=== PATIENT | male | born 1960 | race African-American/Black ===

== ENCOUNTER 2022-08-13 14:12 | Inpatient (IN) | payer OTHER ==
[2022-08-13] MEDS ORDERED: ACETAMINOPHEN 1000 MG/100 ML BAG IVPB ONE (14:34)
[2022-08-13] MEDS ORDERED: ACETAMINOPHEN INJECTION 100 ML IVPB ONE (14:56)
[2022-08-13 15:58] LABS: VENOUS BASE EXCESS 1.9 mmol/L (-2-2); VENOUS O2 SATURATION 50.1 % (70-80); VENOUS PCO2 45.9 mmHg (38-52); VENOUS PH 7.393 (7.310-7.410)
[2022-08-13 16:05] LABS: BASO % 0.1 % (0-2.0); EOS % 0.9 % (0-4.5); HEMATOCRIT 40.5 % (35.4-49); HEMOGLOBIN 12.4 GM/dL (11.7-16.9); LYMPH % 2.5 % (8-40); MCH 29.1 pg (25.7-33.7); MCHC 30.7 g/dl (32.0-35.9); MEAN CELL VOLUME 94.7 fl (80-96); MEAN PLT VOLUME 10.3 fl (7.5-11.1); MONO % 2.2 % (3.8-10.2); NEUT % 94.3 % (42.8-82.8); PLATELET COUNT 154 10^3/uL (134-434); RBC 4.28 M/mm3 (4.00-5.60); RDW 20.9 % (11.9-15.9); WHITE BLOOD COUNT 16.7 K/mm3 (4.0-10.0)
[2022-08-13 16:10] LABS: INR 2.44 (0.83-1.09); PROTHROMBIN TIME (PATIENT) 28.1 SEC (9.7-13.0)
[2022-08-13 16:13] LABS: ACTIVATED PTT 37.6 SECONDS (25.2-36.5)
[2022-08-13 16:23] LABS: CHLORIDE 96 mmol/L (98-107); SODIUM 138 mmol/L (136-145)
[2022-08-13 16:27] LABS: CALCIUM 10.7 mg/dL (8.5-10.1)
[2022-08-13 16:28] LABS: ALBUMIN 2.6 g/dl (3.4-5.0); BLOOD UREA NITROGEN 61.4 mg/dL (7-18); CO2 31 mmol/L (21-32); GLUCOSE,RANDOM 207 mg/dL (74-106); MAGNESIUM 2.4 mg/dL (1.8-2.4)
[2022-08-13 16:31] LABS: PHOSPHOROUS 6.8 mg/dL (2.5-4.9); SGOT/AST 21 U/L (15-37); SGPT/ALT 25 U/L (13-61)
[2022-08-13 16:32] LABS: BILIRUBIN,TOTAL 1.4 mg/dL (0.2-1); TOT PROT 7.8 g/dl (6.4-8.2)
[2022-08-13 16:34] LABS: ALK PHOS 209 U/L (45-117)
[2022-08-13 16:51] LABS: ANION GAP 10 MMOL/L (8-16); CREATININE 11.5 mg/dL (0.55-1.3); POTASSIUM 6.6 mmol/L (3.5-5.1)
[2022-08-13] MEDS ORDERED: INSULIN REGULAR HUMAN 100 UNITS/ML *VIAL IVPUSH ONE (17:08)
[2022-08-13] MEDS ORDERED: CALCIUM GLUCONATE 10% - 1,000 MG/10 ML VIAL IVPUSH ONE (17:08)
[2022-08-13] MEDS ORDERED: DEXTROSE 50%-WATER - 25 GM/50 ML VIAL IVPUSH ONE (17:09)
[2022-08-13] MEDS ORDERED: ALBUTEROL SO4 0.083% IH SOL 2.5 MG/3 ML VIAL.NEB. NEB SCH (17:15)
[2022-08-13 17:27] LABS: ANISOCYTOSIS 1+; MACROCYTOSIS 0; PLATELET ESTIMATE NORMAL
[2022-08-13] MEDS ORDERED: DEXTROSE 50%-WATER 25 GM/50 ML DISP.SYRIN ONE (17:36)
[2022-08-13] MEDS ORDERED: CALCIUM GLUCONATE 10% - 1,000 MG/10 ML VIAL ONE (17:36)
[2022-08-13] MEDS ORDERED: ALBUTEROL SO4 0.5 % INH SOLN 2.5 MG/0.5 ML VIAL.NEB. NEB ONE (17:36)
[2022-08-13] MEDS ORDERED: SODIUM CHLORIDE 250 ML IV PRN ×2 (18:16→18:17)
[2022-08-13] MEDS: ALBUMIN HUMAN 25% 12.5 GM/50 ML VIAL IV SCH ×2 (21:13→21:14)
[2022-08-13] MEDS ORDERED: HYDROmorphone HCl 2 MG/ML VIAL IVPUSH STA (21:15)
[2022-08-13] MEDS: MUPIROCIN 2% TOPICAL OINTMENT FOR DECOLONIZATION NS SCH (21:31)
[2022-08-13] MEDS: HEPARIN NA (PORCINE) 5,000 UNITS/ML 1ML VIAL SQ SCH (21:32)
[2022-08-13] MEDS: ATORVASTATIN CA 80 MG TABLET (FP) PO SCH (21:32)
[2022-08-13] MEDS: CHLORHEXIDINE GLUCONATE 4% CLEANSER FOR DECOLONIZATION TP SCH (21:32)
[2022-08-13] MEDS: PIPERACILLIN/TAZOB 2.25 GM 2.25 GM in DEXTROSE 5%-WATER - 50 ML IVPB SCH (21:49)
[2022-08-13] MEDS: INSULIN (LEVEMIR) 100 UNITS/ML UNITS SQ SCH (22:13)
[2022-08-13] MEDS: INSULIN SLIDING SCALE (NOVOLOG) 1 VIAL SQ SCH (22:13)
[2022-08-14] MEDS: PIPERACILLIN/TAZOB 2.25 GM 2.25 GM in DEXTROSE 5%-WATER - 50 ML IVPB SCH ×4 (01:46→18:26)
[2022-08-14] MEDS ORDERED: INSULIN (NOVOLOG) ASPART 100 UNITS/ML 10ML VIAL ONE ×3 (06:24→17:44)
[2022-08-14] MEDS: HEPARIN NA (PORCINE) 5,000 UNITS/ML 1ML VIAL SQ SCH ×3 (06:33→21:24)
[2022-08-14] MEDS: INSULIN SLIDING SCALE (NOVOLOG) 1 VIAL SQ SCH ×4 (06:33→21:25)
[2022-08-14 06:37] LABS: HEMATOCRIT 38.3 % (35.4-49); MCH 29.3 pg (25.7-33.7); MCHC 31.4 g/dl (32.0-35.9); MEAN CELL VOLUME 93.5 fl (80-96); MEAN PLT VOLUME 9.9 fl (7.5-11.1); PLATELET COUNT 157 10^3/uL (134-434); RBC 4.09 M/mm3 (4.00-5.60); RDW 21.1 % (11.9-15.9); WHITE BLOOD COUNT 15.2 K/mm3 (4.0-10.0)
[2022-08-14 06:41] LABS: POTASSIUM 5.2 mmol/L (3.5-5.1)
[2022-08-14 06:45] LABS: ALBUMIN 2.1 g/dl (3.4-5.0); CALCIUM 9.5 mg/dL (8.5-10.1); MAGNESIUM 1.9 mg/dL (1.8-2.4)
[2022-08-14 06:48] LABS: CREATININE 7.3 mg/dL (0.55-1.3); PHOSPHOROUS 5.5 mg/dL (2.5-4.9)
[2022-08-14 06:49] LABS: TOT PROT 6.6 g/dl (6.4-8.2)
[2022-08-14 06:50] LABS: BILIRUBIN,TOTAL 1.4 mg/dL (0.2-1)
[2022-08-14 09:28] LABS: ANISOCYTOSIS 1+; MACROCYTOSIS 0
[2022-08-14] MEDS ORDERED: ENOXAPARIN NA (PORCINE) 40 MG/0.4 ML DISP.SYRIN SQ SCH (10:00)
[2022-08-14] MEDS: MUPIROCIN 2% TOPICAL OINTMENT FOR DECOLONIZATION NS SCH ×2 (10:18→21:25)
[2022-08-14] MEDS: ASPIRIN 81 MG CHEWABLE TABLETS PO SCH (10:18)
[2022-08-14] MEDS ORDERED: SODIUM CHLORIDE 250 ML IV PRN (10:34)
[2022-08-14] MEDS: INSULIN (LEVEMIR) 100 UNITS/ML UNITS SQ SCH ×2 (11:03→21:24)
[2022-08-14] MEDS ORDERED: VANCOMYCIN/WATER FOR INJ (PEG) 1,000 MG/200 ML BAG IVPB ONE (11:45)
[2022-08-14] MEDS ORDERED: HYDROmorphone HCl 2 MG/ML VIAL IVPUSH STA (20:38)
[2022-08-14] MEDS: CHLORHEXIDINE GLUCONATE 4% CLEANSER FOR DECOLONIZATION TP SCH (21:24)
[2022-08-14] MEDS: ATORVASTATIN CA 80 MG TABLET (FP) PO SCH (21:25)
[2022-08-14] MEDS ORDERED: INSULIN (LEVEMIR) 100 UNITS/ML UNITS SQ ONE (21:39)
[2022-08-15] MEDS: PIPERACILLIN/TAZOB 2.25 GM 2.25 GM in DEXTROSE 5%-WATER - 50 ML IVPB SCH ×3 (01:23→17:58)
[2022-08-15] MEDS: HEPARIN NA (PORCINE) 5,000 UNITS/ML 1ML VIAL SQ SCH ×3 (06:09→21:20)
[2022-08-15] MEDS: INSULIN SLIDING SCALE (NOVOLOG) 1 VIAL SQ SCH ×4 (06:09→21:21)
[2022-08-15 06:58] LABS: HEMATOCRIT 38.3 % (35.4-49); HEMOGLOBIN 12.1 GM/dL (11.7-16.9); MCH 29.4 pg (25.7-33.7); MCHC 31.5 g/dl (32.0-35.9); MEAN CELL VOLUME 93.4 fl (80-96); MEAN PLT VOLUME 9.5 fl (7.5-11.1); PLATELET COUNT 166 10^3/uL (134-434); RBC 4.11 M/mm3 (4.00-5.60); RDW 20.4 % (11.9-15.9); WHITE BLOOD COUNT 13.3 K/mm3 (4.0-10.0)
[2022-08-15 07:50] LABS: POTASSIUM 4.4 mmol/L (3.5-5.1)
[2022-08-15 08:00] LABS: CALCIUM 9.9 mg/dL (8.5-10.1); MAGNESIUM 2.1 mg/dL (1.8-2.4)
[2022-08-15 08:02] LABS: BLOOD UREA NITROGEN 31.1 mg/dL (7-18)
[2022-08-15 08:05] LABS: PHOSPHOROUS 4.1 mg/dL (2.5-4.9)
[2022-08-15 08:07] LABS: CREATININE 5.3 mg/dL (0.55-1.3)
[2022-08-15] MEDS ORDERED: NEBIVOLOL 10 MG TABLET (FP) PO SCH (10:00)
[2022-08-15] MEDS: RANOLAZINE E.R. 500 MG TABLET (FP) PO SCH ×2 (10:19→21:21)
[2022-08-15] MEDS: PANTOPRAZOLE 40 MG TABLET PO SCH (10:19)
[2022-08-15] MEDS: PRASUGREL HCL 5 MG TAB PO SCH (10:19)
[2022-08-15] MEDS: ASPIRIN 81 MG CHEWABLE TABLETS PO SCH (10:20)
[2022-08-15] MEDS: MUPIROCIN 2% TOPICAL OINTMENT FOR DECOLONIZATION NS SCH ×2 (10:20→21:22)
[2022-08-15] MEDS: INSULIN (LEVEMIR) 100 UNITS/ML UNITS SQ SCH ×2 (10:20→21:21)
[2022-08-15] MEDS ORDERED: INSULIN (NOVOLOG) ASPART 100 UNITS/ML 10ML VIAL ONE ×2 (11:16→22:24)
[2022-08-15] MEDS: ATORVASTATIN CA 80 MG TABLET (FP) PO SCH (21:20)
[2022-08-15] MEDS: CHLORHEXIDINE GLUCONATE 4% CLEANSER FOR DECOLONIZATION TP SCH (21:21)
[2022-08-16] MEDS: PIPERACILLIN/TAZOB 2.25 GM 2.25 GM in DEXTROSE 5%-WATER - 50 ML IVPB SCH ×3 (01:24→17:41)
[2022-08-16] MEDS: HEPARIN NA (PORCINE) 5,000 UNITS/ML 1ML VIAL SQ SCH ×3 (06:20→22:22)
[2022-08-16] MEDS: INSULIN SLIDING SCALE (NOVOLOG) 1 VIAL SQ SCH ×4 (06:58→22:45)
[2022-08-16 07:55] LABS: CHLORIDE 98 mmol/L (98-107); SODIUM 135 mmol/L (136-145)
[2022-08-16 07:59] LABS: CALCIUM 9.6 mg/dL (8.5-10.1); CO2 29 mmol/L (21-32); MAGNESIUM 2.6 mg/dL (1.8-2.4)
[2022-08-16] MEDS ORDERED: DEXTROSE 50%-WATER 25 GM/50 ML DISP.SYRIN ONE (08:01)
[2022-08-16] MEDS ORDERED: DEXTROSE 50%-WATER 25 GM/50 ML DISP.SYRIN IVPUSH ONE ×2 (08:10→08:27)
[2022-08-16 08:12] LABS: HEMATOCRIT 41.5 % (35.4-49); HEMOGLOBIN 12.8 GM/dL (11.7-16.9); MCH 28.7 pg (25.7-33.7); MCHC 30.7 g/dl (32.0-35.9); MEAN CELL VOLUME 93.4 fl (80-96); MEAN PLT VOLUME 9.7 fl (7.5-11.1); PLATELET COUNT 139 10^3/uL (134-434); RBC 4.45 M/mm3 (4.00-5.60); RDW 20.6 % (11.9-15.9); WHITE BLOOD COUNT 11.4 K/mm3 (4.0-10.0)
[2022-08-16 08:17] LABS: ANION GAP 9 MMOL/L (8-16); BLOOD UREA NITROGEN 56.4 mg/dL (7-18); GLUCOSE,RANDOM 31 mg/dL (74-106); POTASSIUM 6.8 mmol/L (3.5-5.1)
[2022-08-16] MEDS ORDERED: ACETAMINOPHEN 500 MG TABLET (FP) PO ONE (08:27)
[2022-08-16 09:26] LABS: GAMMA GLUTAMYL TRANSPEPTIDASE 231 U/L (5-85)
[2022-08-16 09:28] LABS: BILIRUBIN,DIRECT 0.3 mg/dL (0.0-0.2)
[2022-08-16] MEDS ORDERED: VANCOMYCIN/WATER FOR INJ (PEG) 1,000 MG/200 ML BAG IVPB ONE (09:58)
[2022-08-16] MEDS: RANOLAZINE E.R. 500 MG TABLET (FP) PO SCH ×2 (10:12→22:23)
[2022-08-16] MEDS: PANTOPRAZOLE 40 MG TABLET PO SCH (10:15)
[2022-08-16] MEDS: ASPIRIN 81 MG CHEWABLE TABLETS PO SCH (10:16)
[2022-08-16] MEDS: PRASUGREL HCL 5 MG TAB PO SCH (10:17)
[2022-08-16] MEDS: MUPIROCIN 2% TOPICAL OINTMENT FOR DECOLONIZATION NS SCH ×2 (10:17→22:46)
[2022-08-16] MEDS: LIDOCAINE 5% TOPICAL PATCH TP SCH (10:25)
[2022-08-16] MEDS ORDERED: SODIUM ZIRCONIUM CYCLOSILICATE (LOKELMA) 5 GM PACKET PO ONE (11:20)
[2022-08-16 12:26] LABS: INR 1.48 (0.83-1.09); PROTHROMBIN TIME (PATIENT) 17.1 SEC (9.7-13.0)
[2022-08-16 12:29] LABS: ACTIVATED PTT 35.3 SECONDS (25.2-36.5)
[2022-08-16 12:40] LABS: POTASSIUM 4.7 mmol/L (3.5-5.1)
[2022-08-16 12:41] LABS: CALCIUM 9.9 mg/dL (8.5-10.1)
[2022-08-16 12:42] LABS: BLOOD UREA NITROGEN 59.5 mg/dL (7-18)
[2022-08-16 12:45] LABS: CREATININE 7.1 mg/dL (0.55-1.3)
[2022-08-16] MEDS ORDERED: SODIUM CHLORIDE 250 ML IV PRN (16:19)
[2022-08-16] MEDS ORDERED: INSULIN (NOVOLOG) ASPART 100 UNITS/ML 10ML VIAL ONE ×2 (17:38→21:14)
[2022-08-16] MEDS: LIDOCAINE PATCH REMOVAL MC SCH (22:23)
[2022-08-16] MEDS: CHLORHEXIDINE GLUCONATE 4% CLEANSER FOR DECOLONIZATION TP SCH (22:23)
[2022-08-16] MEDS: ATORVASTATIN CA 80 MG TABLET (FP) PO SCH (22:23)
[2022-08-17] MEDS: PIPERACILLIN/TAZOB 2.25 GM 2.25 GM in DEXTROSE 5%-WATER - 50 ML IVPB SCH ×3 (02:49→18:09)
[2022-08-17] MEDS: HEPARIN NA (PORCINE) 5,000 UNITS/ML 1ML VIAL SQ SCH ×3 (06:10→21:07)
[2022-08-17] MEDS: INSULIN SLIDING SCALE (NOVOLOG) 1 VIAL SQ SCH ×4 (06:11→21:08)
[2022-08-17 08:08] LABS: CARCINOEMBRYONIC ANTIGEN 5.1 ng/mL (0.0-4.7)
[2022-08-17] MEDS: PANTOPRAZOLE 40 MG TABLET PO SCH (09:19)
[2022-08-17] MEDS: ASPIRIN 81 MG CHEWABLE TABLETS PO SCH (09:19)
[2022-08-17] MEDS: LIDOCAINE 5% TOPICAL PATCH TP SCH (09:19)
[2022-08-17] MEDS: RANOLAZINE E.R. 500 MG TABLET (FP) PO SCH ×2 (09:19→21:07)
[2022-08-17] MEDS: PRASUGREL HCL 5 MG TAB PO SCH (09:20)
[2022-08-17] MEDS: MUPIROCIN 2% TOPICAL OINTMENT FOR DECOLONIZATION NS SCH ×2 (11:00→21:17)
[2022-08-17] MEDS ORDERED: INSULIN (NOVOLOG) ASPART 100 UNITS/ML 10ML VIAL ONE (12:43)
[2022-08-17 13:45] LABS: HEMATOCRIT 35.4 % (35.4-49); HEMOGLOBIN 11.5 GM/dL (11.7-16.9); MCH 29.2 pg (25.7-33.7); MCHC 32.4 g/dl (32.0-35.9); MEAN CELL VOLUME 90.1 fl (80-96); PLATELET COUNT 124 10^3/uL (134-434); RBC 3.92 M/mm3 (4.00-5.60); RDW 20.7 % (11.9-15.9); WHITE BLOOD COUNT 8.7 K/mm3 (4.0-10.0)
[2022-08-17 13:47] LABS: INR 1.46 (0.83-1.09); PROTHROMBIN TIME (PATIENT) 16.9 SEC (9.7-13.0)
[2022-08-17 14:22] LABS: CHLORIDE 94 mmol/L (98-107); POTASSIUM 4.7 mmol/L (3.5-5.1); SODIUM 133 mmol/L (136-145)
[2022-08-17 14:25] LABS: CALCIUM 9.7 mg/dL (8.5-10.1)
[2022-08-17 14:26] LABS: ANION GAP 14 MMOL/L (8-16); BLOOD UREA NITROGEN 77.1 mg/dL (7-18); CO2 26 mmol/L (21-32); GLUCOSE,RANDOM 246 mg/dL (74-106)
[2022-08-17 14:40] LABS: MAGNESIUM 2.7 mg/dL (1.8-2.4)
[2022-08-17 14:42] LABS: ALBUMIN 2.3 g/dl (3.4-5.0)
[2022-08-17 14:45] LABS: PHOSPHOROUS 4.7 mg/dL (2.5-4.9); SGOT/AST 66 U/L (15-37); SGPT/ALT 62 U/L (13-61)
[2022-08-17 14:46] LABS: BILIRUBIN,TOTAL 1.1 mg/dL (0.2-1); TOT PROT 7.1 g/dl (6.4-8.2)
[2022-08-17 14:48] LABS: ALK PHOS 307 U/L (45-117); CREATININE 8.5 mg/dL (0.55-1.3)
[2022-08-17 14:58] LABS: ANISOCYTOSIS 1+; MACROCYTOSIS 1+
[2022-08-17] MEDS: LIDOCAINE PATCH REMOVAL MC SCH (21:07)
[2022-08-17] MEDS: ATORVASTATIN CA 80 MG TABLET (FP) PO SCH (21:07)
[2022-08-17] MEDS: CHLORHEXIDINE GLUCONATE 4% CLEANSER FOR DECOLONIZATION TP SCH (21:07)
[2022-08-18] MEDS: PIPERACILLIN/TAZOB 2.25 GM 2.25 GM in DEXTROSE 5%-WATER - 50 ML IVPB SCH ×3 (02:21→17:13)
[2022-08-18] MEDS: HEPARIN NA (PORCINE) 5,000 UNITS/ML 1ML VIAL SQ SCH ×3 (06:34→21:28)
[2022-08-18] MEDS: INSULIN SLIDING SCALE (NOVOLOG) 1 VIAL SQ SCH ×4 (06:56→21:38)
[2022-08-18] MEDS ORDERED: INSULIN (NOVOLOG) ASPART 100 UNITS/ML 10ML VIAL ONE ×2 (07:24→17:07)
[2022-08-18] MEDS ORDERED: MUPIROCIN 2% TOPICAL OINTMENT FOR DECOLONIZATION NS SCH (10:00)
[2022-08-18] MEDS: LIDOCAINE 5% TOPICAL PATCH TP SCH (10:27)
[2022-08-18] MEDS: PANTOPRAZOLE 40 MG TABLET PO SCH (10:27)
[2022-08-18] MEDS: ASPIRIN 81 MG CHEWABLE TABLETS PO SCH (10:27)
[2022-08-18] MEDS: RANOLAZINE E.R. 500 MG TABLET (FP) PO SCH ×2 (10:27→21:28)
[2022-08-18] MEDS: PRASUGREL HCL 5 MG TAB PO SCH (11:30)
[2022-08-18] MEDS: ATORVASTATIN CA 80 MG TABLET (FP) PO SCH (21:28)
[2022-08-18] MEDS: LIDOCAINE PATCH REMOVAL MC SCH (21:31)
[2022-08-18] MEDS ORDERED: CHLORHEXIDINE GLUCONATE 4% CLEANSER FOR DECOLONIZATION TP SCH (22:00)
[2022-08-19] MEDS: PIPERACILLIN/TAZOB 2.25 GM 2.25 GM in DEXTROSE 5%-WATER - 50 ML IVPB SCH ×3 (01:41→18:46)
[2022-08-19] MEDS: HEPARIN NA (PORCINE) 5,000 UNITS/ML 1ML VIAL SQ SCH ×3 (05:51→22:13)
[2022-08-19] MEDS ORDERED: INSULIN (NOVOLOG) ASPART 100 UNITS/ML 10ML VIAL ONE (06:12)
[2022-08-19] MEDS: INSULIN SLIDING SCALE (NOVOLOG) 1 VIAL SQ SCH ×4 (06:20→22:23)
[2022-08-19] MEDS: RANOLAZINE E.R. 500 MG TABLET (FP) PO SCH ×2 (10:34→22:14)
[2022-08-19] MEDS: PANTOPRAZOLE 40 MG TABLET PO SCH (10:34)
[2022-08-19] MEDS: ASPIRIN 81 MG CHEWABLE TABLETS PO SCH (10:34)
[2022-08-19] MEDS: PRASUGREL HCL 5 MG TAB PO SCH (10:35)
[2022-08-19] MEDS ORDERED: SODIUM CHLORIDE 250 ML IV PRN (13:50)
[2022-08-19] MEDS: LIDOCAINE PATCH REMOVAL MC SCH (22:14)
[2022-08-19] MEDS: ATORVASTATIN CA 80 MG TABLET (FP) PO SCH (22:14)
[2022-08-19 23:46] VITALS: BMI 26.1
[2022-08-20] MEDS ORDERED: PIPERACILLIN/TAZOBACTAM 2.25 GM VIAL IVPB ONE (02:07)
[2022-08-20] MEDS: PIPERACILLIN/TAZOB 2.25 GM 2.25 GM in DEXTROSE 5%-WATER - 50 ML IVPB SCH (02:15)
[2022-08-20] MEDS: HEPARIN NA (PORCINE) 5,000 UNITS/ML 1ML VIAL SQ SCH ×2 (05:28→13:58)
[2022-08-20] MEDS: INSULIN SLIDING SCALE (NOVOLOG) 1 VIAL SQ SCH ×2 (07:26→11:10)
[2022-08-20] MEDS ORDERED: VITAMIN B COMP W-C 1 EA TABLET (NEPHRO-VITE) PO SCH (10:00)
[2022-08-20] MEDS: ASPIRIN 81 MG CHEWABLE TABLETS PO SCH (10:43)
[2022-08-20] MEDS: RANOLAZINE E.R. 500 MG TABLET (FP) PO SCH (10:44)
[2022-08-20] MEDS: PRASUGREL HCL 5 MG TAB PO SCH (10:44)
[2022-08-20] MEDS: PANTOPRAZOLE 40 MG TABLET PO SCH (10:44)
[2022-08-20] MEDS ORDERED: INSULIN (NOVOLOG) ASPART 100 UNITS/ML 10ML VIAL ONE (11:07)
[2022-08-20 15:00] VITALS: BP 134/72; PULSE 98; RESP 17; TEMP 98.6
== END 2022-08-20 16:00 | disposition home or self-care (01) | DRG 139 ==
LOC: JER 14:12 → JICU 17:15 → JERBED 17:15 → UNDOADMIN 17:15 → JICU 18:34 → J8W 08-18 05:12
PROVIDERS: ADMIT Internal Medicine Pulmonary Disease; ATTEND Nurse Practitioner Acute Care
PROC: 5A1D70Z Performance of Urinary Filtration, Intermittent, Less than 6 Hours Per Day (ICD-10-PCS; principal; 2022-08-19)
DX: J18.9 Pneumonia, unspecified organism (principal); I13.2 Hypertensive heart and chronic kidney disease with heart failure and with stage 5 chronic kidney disease, or end stage renal disease; N18.6 End stage renal disease; E83.39 Other disorders of phosphorus metabolism; J44.0 Chronic obstructive pulmonary disease with (acute) lower respiratory infection; M87.9 Osteonecrosis, unspecified; E11.22 Type 2 diabetes mellitus with diabetic chronic kidney disease; E11.649 Type 2 diabetes mellitus with hypoglycemia without coma; E87.5 Hyperkalemia; E87.70 Fluid overload, unspecified; R04.2 Hemoptysis; D72.829 Elevated white blood cell count, unspecified; E78.5 Hyperlipidemia, unspecified; F17.210 Nicotine dependence, cigarettes, uncomplicated; I25.10 Atherosclerotic heart disease of native coronary artery without angina pectoris; M19.011 Primary osteoarthritis, right shoulder; Z99.2 Dependence on renal dialysis; I50.9 Heart failure, unspecified
CPT/HCPCS: 0241U-QW; 36415; 71045-TC-FY; 71250-TC; 73030-TC-RT-FY; 73200-TC-RT; 80048; 80053; 82105; 82248; 82378; 82803; 82962; 82977; 83735; 83880; 84100; 84153; 84484; 85025; 85027; 85610; 85730; 86301; 86480; 86713; 86803; 87040; 87081; 87305; 87340; 87449; 93005; 93010; 93306-TC; 97116-GP; 97161-GP; 99285-25; G0480; J1644